=== PATIENT | female | born 1985 | race Two or more races ===

== ENCOUNTER 2017-11-29 11:40 | Day surgery (SDC) | payer BC, OTHER ==
[~2017-11-29] VITALS: Ht 157.5 cm; Wt 50.8 kg
[~2017-11-29 11:40] MED LIST: ALPR0.25 PO; CEPH-376 PO
[2017-11-29] MEDS ORDERED: LACTATED RINGERS 1,000 ML IV SCH (12:01)
[2017-11-29 12:05] VITALS: BP 118/85
[2017-11-29 12:31] LABS: HCG UR SG 1.019 (1.003-1.030)
[2017-11-29] MEDS ORDERED: MIDAZOLAM 1 MG/ML, 2ML ONE (12:42)
[2017-11-29] MEDS ORDERED: FENTANYL PF 250 MCG/5ML ONE (12:42)
[2017-11-29] MEDS ORDERED: ROPIvacaine/PF 0.5%, 30 ML ONE (13:06)
[2017-11-29] MEDS ORDERED: ONDANSETRON 2MG/ML, 2ML ONE (13:54)
[2017-11-29] MEDS ORDERED: DEXAMETHASONE 4 MG/ML, 1ML ONE (13:54)
[2017-11-29] MEDS ORDERED: PROPOFOL 50 ML ONE (13:56)
[2017-11-29] MEDS ORDERED: EPHEDRINE 50 MG/ML, 1ML IVPush PRN (15:30)
[2017-11-29] MEDS ORDERED: MIDAZOLAM 1 MG/ML, 2ML IV PRN (15:30)
[2017-11-29] MEDS ORDERED: ONDANSETRON ODT 8 MG PO PRN (15:30)
[2017-11-29] MEDS ORDERED: MEPERIDINE/PF 25MG/0.5ML IVPush PRN (15:30)
[2017-11-29] MEDS ORDERED: DIPHENHYDRAMINE 50 MG/ML, 1ML IVPush PRN (15:30)
[2017-11-29] MEDS ORDERED: PROMETHAZINE 25 MG/ML, 1ML IV PRN (15:30)
[2017-11-29] MEDS ORDERED: EPHEDRINE 50 MG/ML, 1ML IM PRN (15:30)
[2017-11-29] MEDS ORDERED: PROMETHAZINE 25 MG SUPP PR PRN (15:30)
[2017-11-29] MEDS ORDERED: PROMETHAZINE 12.5 MG SUPP PR PRN (15:30)
[2017-11-29] MEDS ORDERED: ACETAMINOPHEN 325 MG TABLET PO PRN (15:30)
[2017-11-29] MEDS ORDERED: MORPHINE SULFATE 4 MG/ML, 1ML IVPush PRN (15:30)
[2017-11-29] MEDS ORDERED: OXYcodone 5 MG/5 ML ORAL.SOL UDC PO PRN (15:30)
[2017-11-29] MEDS ORDERED: LABETALOL 5MG/ML, 20ML IV PRN (15:30)
[2017-11-29] MEDS ORDERED: FENTANYL PF 100 MCG/2ML IV PRN (15:30)
[2017-11-29] MEDS ORDERED: CEFAZOLIN 1,000 MG ONE (15:36)
[2017-11-29] MEDS ORDERED: ROCURONIUM 10MG/ML,5ML ONE (15:36)
[2017-11-29] MEDS ORDERED: SUCCINYLCHOLINE 20 MG/ML, 10ML ONE (15:36)
[2017-11-29] MEDS ORDERED: PROPOFOL 10 MG/ML, 20ML ONE (15:36)
[2017-11-29] MEDS ORDERED: ACETAMINOPHEN 650 MG/20.3 ML UDC ONE (15:50)
[2017-11-29] MEDS ORDERED: OXYcodone 5 MG/5 ML ORAL.SOL UDC ONE (15:50)
[2017-11-29] MEDS ORDERED: FENTANYL PF 100 MCG/2ML ONE (16:01)
== END 2017-11-29 18:20 | disposition home or self-care (01) ==
LOC: OUT 11:40
PROVIDERS: ATTEND Orthopaedic Surgery
DX: S43.014A Anterior dislocation of right humerus, initial encounter (principal); M94.211 Chondromalacia, right shoulder; X58.XXXA Exposure to other specified factors, initial encounter; Y93.9 Activity, unspecified; Y92.89 Other specified places as the place of occurrence of the external cause; Y99.8 Other external cause status; Z98.51 Tubal ligation status; Z72.89 Other problems related to lifestyle; Z98.890 Other specified postprocedural states
CPT/HCPCS: 29806; 81025; C1713; J0330; J0690; J1100; J2250; J2405; J2704; J2795; J3010